=== PATIENT | male | born 1975 | race Two or more races ===

== ENCOUNTER → 2018-02-07 | Outpatient (CLI) | payer OTHER ==
--- NOTE | 2018-02-07 11:46 | P.STRESS ---
- Stress Test Note Stress Test Results/Findings: Exam Performed: stress echo exercise Exam Date: 02/07/18 Reason for Exam: Syncope Height: 5 ft 5 in Weight: 74.389 kg Protocol: Stress Echo Stage: III Duration of Exercise: 9 Resting Heart Rate: 65 Resting Blood Pressure: 118/79 Maximum Achieved Heart Rate: 166 Maximum Achieved Blood Pressure: 161/88 85% PMHR: 94 100% PMHR: 176 METS: 10.5 Technologist Comment: Stress Test Results/Findings: Baseline heart rate 83 beats a minute Baseline blood pressure 118/79 mmHg the central ECG showed normal sinus rhythm with early repolarization inferolaterally Patient exercised on a Juan protocol for 9 minutes achieving a peak heart rate of 166 beats a minute. Normal blood pressure response to exercise There is no CT evidence for ischemia no arrhythmias noted no symptoms noted There was no echocardiographic evidence for ischemia Impression Good exercise capacity no ECG or echocardiographic evidence for ischemia
== END | disposition home or self-care (01) ==
LOC: RADNMMAIN 09:37
PROVIDERS: ATTEND Family Medicine
DX: R42 Dizziness and giddiness (principal); R00.2 Palpitations
CPT/HCPCS: 93351

== ENCOUNTER 2019-10-30 17:35 | Inpatient (IN) | payer OTHER ==
[2019-10-30] MEDS ORDERED: SODIUM CHLORIDE 0.9% 500 ML 500 ML IV STA (17:56)
--- NOTE | 2019-10-30 18:13 | ED ---
General Adult HPI - General Chief complaint: Abdominal Pain Stated complaint: Kidney pain Time Seen by Provider: 10/30/19 17:43 Source: patient Mode of arrival: ambulatory Limitations: no limitations - History of Present Illness Initial comments: Dictation was produced using [employer] dictation software. please excuse any grammatical, word or spelling errors. This patient was cared for during a federal and state declared state of emergency secondary to Covid 19 Chief Complaint: 43-year-old male with past medical history of appendectomy cholecystectomy presents with abdominal pain. History of Present Illness: 43-year-old male presents to the emergency Department with intermittent abdominal pain for the last 4 weeks. Patient state s the pain is his left lower quadrant. He states is intermittent. He states that it's been coming more severe. No exacerbating or mitigating factors. Patient states that the pain radiates to his epigastric area. Does have nausea but no vomiting. Denies any diarrhea. Patient's heart he might have a kidney stone. He has no urinary symptoms. The ROS documented in this emergency department record has been reviewed and confirmed by me. Those systems with pertinent positive or negative responses have been documented in the HPI. All other systems are other negative and/or noncontributory. PHYSICAL EXAM: General Impression: Alert and oriented x3, not in acute distress HEENT: Normocephalic atraumatic, extra-ocular movements intact, pupils equal and reactive to light bilaterally, mucous membranes moist. Cardiovascular: Heart regular rate and rhythm, S1&S2 audible, no murmurs, rubs or gallops Chest: Able to complete full sentences, no retractions, no tachypnea Abdomen: Bowel sounds present, abdomen soft, mild diffuse abdominal tenderness non-distended, no organomegaly Musculoskeletal: Pulses present and equal in all extremities, no peripheral edema Motor: no focal deficits noted Neurological: CN II-XII grossly intact, no focal motor or sensory deficits noted Skin: Intact with no visualized rashes Psych: Normal affect and mood ED course: 43-year-old male presents with chief complaint of abdominal pain. Vital signs upon arrival shows heart rate of 119 cumbersome vital signs within acceptable limits. Laboratory evaluation obtained. Leukocytosis 20.2, metabolic panel is unremarkable. Urinalysis is unremarkable. CT of the abdomen and pelvis was obtained showing perforated diverticulitis with pneumoperitoneum and pericolonic fluid. Patient reevaluated bedside he is stable appearing. Patient started on Zosyn. Patient will be admitted to general surgery. EKG interpretation: Ventricular rate 106, sinus tachycardia, MA interval 154, QRS 86, QTC 435. No MA prolongation, no QTC prolongation, no ST or T-wave changes noted. . Overall, this EKG is unremarkable - Related Data Home Medications Medication Instructions Recorded Confirmed Aspirin EC [Ecotrin Low Dose] 81 mg PO DAILY 10/30/19 10/30/19 Cholecalciferol [Vitamin D3 (25 1,000 unit PO DAILY 10/30/19 10/30/19 Mcg = 1000 Iu)] Omeprazole Magnesium [PriLOSEC OTC] 40 mg PO DAILY PRN 10/30/19 10/30/19 Allergies Allergy/AdvReac Type Severity Reaction Status Date / Time No Known Allergies Allergy Verified 10/30/19 18:33 Review of Systems ROS Statement: Those systems with pertinent positive or pertinent negative responses have been documented in the HPI. ROS Other: All systems not noted in ROS Statement are negative. Past Medical History Past Medical History: No Reported History History of Any Multi-Drug Resistant Organisms: None Reported Past Surgical History: Appendectomy, Cholecystectomy Past Psychological History: No Psychological Hx Reported Smoking Status: Current every day smoker Past Alcohol Use History: Occasional Past Drug Use History: None Reported General Exam Limitations: no limitations Course Vital Signs 10/30/19 10/30/19 17:38 20:03 Temperature 99.5 F 100.2 F H Pulse Rate 119 H 102 H Respiratory 18 18 Rate Blood Pressure 143/90 142/98 O2 Sat by Pulse 97 100 Oximetry Medical Decision Making - Lab Data Result diagrams: 10/30/19 18:35 10/30/19 18:35 Lab Results 10/30/19 10/30/19 10/30/19 Range/Units 18:35 18:35 18:43 WBC 20.2 H (3.8-10.6) k/uL RBC 4.80 (4.30-5.90) m/uL Hgb 14.6 (13.0-17.5) gm/dL Hct 44.7 (39.0-53.0) % MCV 93.3 (80.0-100.0) fL MCH 30.3 (25.0-35.0) pg MCHC 32.5 (31.0-37.0) g/dL RDW 12.3 (11.5-15.5) % Plt Count 246 (150-450) k/uL Neutrophils % 87 % Lymphocytes % 7 % Monocytes % 4 % Eosinophils % 0 % Basophils % 0 % Neutrophils # 17.6 H (1.3-7.7) k/uL Lymphocytes # 1.4 (1.0-4.8) k/uL Monocytes # 0.9 (0-1.0) k/uL Eosinophils # 0.1 (0-0.7) k/uL Basophils # 0.1 (0-0.2) k/uL Sodium 136 L (137-145) mmol/L Potassium 3.7 (3.5-5.1) mmol/L Chloride 101 (98-107) mmol/L Carbon Dioxide 26 (22-30) mmol/L Anion Gap 9 mmol/L BUN 14 (9-20) mg/dL Creatinine 0.87 (0.66-1.25) mg/dL Est GFR (CKD-EPI)AfAm >90 (>60 ml/min/1.73 sqM) Est GFR (CKD-EPI)NonAf >90 (>60 ml/min/1.73 sqM) Glucose 134 H (74-99) mg/dL Calcium 9.3 (8.4-10.2) mg/dL Total Bilirubin 1.1 (0.2-1.3) mg/dL AST 18 (17-59) U/L ALT 24 (4-49) U/L Alkaline Phosphatase 61 (38-126) U/L Total Protein 7.5 (6.3-8.2) g/dL Albumin 4.3 (3.5-5.0) g/dL Lipase 43 (23-300) U/L Urine Color Yellow Urine Appearance Clear (Clear) Urine pH 5.5 (5.0-8.0) Ur Specific [place] 1.025 (1.001-1.035) Urine Protein 1+ H (Negative) Urine Glucose (UA) Negative (Negative) Urine Ketones 1+ H (Negative) Urine Blood Negative (Negative) Urine Nitrite Negative (Negative) Urine Bilirubin Negative (Negative) Urine Urobilinogen <2.0 (<2.0) mg/dL Ur Leukocyte Esterase Negative (Negative) Urine WBC 2 (0-5) /hpf Urine Mucus Many H (None) /hpf Disposition Clinical Impression: Diverticulitis Disposition: ADMITTED IP TO THIS HOSP Condition: Fair Referrals: Denis Villagomez MD [Primary Care Provider] - 1-2 days Decision Time: 20:09
[2019-10-30 18:49] LABS: Basophils # (A) 0.1 k/uL (0-0.2); Basophils % (A) 0 %; Eosinophils # (A) 0.1 k/uL (0-0.7); Eosinophils % (A) 0 %; HCT 44.7 % (39.0-53.0); HGB 14.6 gm/dL (13.0-17.5); Lymphocytes # (A) 1.4 k/uL (1.0-4.8); Lymphocytes % (A) 7 %; MCH 30.3 pg (25.0-35.0); MCHC 32.5 g/dL (31.0-37.0); MCV 93.3 fL (80.0-100.0); Mean Platelet Volume 7.7; Monocytes # (A) 0.9 k/uL (0-1.0); Monocytes % (A) 4 %; Neutrophils # (A) 17.6 k/uL (1.3-7.7); Neutrophils % (A) 87 %; Platelet Count 246 k/uL (150-450); RDW 12.3 % (11.5-15.5); WBC 20.2 k/uL (3.8-10.6)
[2019-10-30 19:03] LABS: ALT 24 U/L (4-49); AST 18 U/L (17-59); African American GFR (CKD) >90 (>60 ml/min/1.73 sqM); Albumin 4.3 g/dL (3.5-5.0); Alkaline Phosphatase 61 U/L (38-126); Anion Gap 9 mmol/L; Blood Urea Nitrogen 14 mg/dL (9-20); Calcium 9.3 mg/dL (8.4-10.2); Carbon Dioxide 26 mmol/L (22-30); Chloride 101 mmol/L (98-107); Glucose 134 mg/dL (74-99); Non-African American GFR(CKD) >90 (>60 ml/min/1.73 sqM); Potassium 3.7 mmol/L (3.5-5.1); Sodium 136 mmol/L (137-145); Total Bilirubin 1.1 mg/dL (0.2-1.3); Total Protein 7.5 g/dL (6.3-8.2)
[2019-10-30 19:06] LABS: Appearance,Urine Clear (Clear); Bilirubin,Urine Negative (Negative); Blood,Urine Negative (Negative); Color,Urine Yellow; Glucose,Urine (UA) Negative (Negative); Ketones,Urine 1+ (Negative); Leukocyte Esterase,Urine Negative (Negative); Mucus,Urine Many /hpf; Nitrite,Urine Negative (Negative); PH, Urine 5.5 (5.0-8.0); Protein,Urine 1+ (Negative); Specific Gravity,Urine 1.025 (1.001-1.035); Urobilinogen,Urine <2.0 mg/dL (<2.0); WBC,Urine 2 /hpf (0-5)
--- NOTE | 2019-10-30 20:08 | CT ---
EXAMINATION TYPE: CT abdomen pelvis w con DATE OF EXAM: 10/30/2019 COMPARISON: None HISTORY: Acute abdominal pain. Generalized pain with distention of the abdomen on and off for months with dark urine CT DLP: 939.3 mGycm Automated exposure control for dose reduction was used. TECHNIQUE: Helical acquisition of images was performed from the lung bases through the pelvis. CONTRAST: Performed without Oral Contrast and with IV Contrast, patient injected with 100 mL of Isovue 300. FINDINGS: LUNG BASES: No significant abnormality is appreciated. LIVER/GB: Liver is diffusely hypoattenuated approaching criteria for mild degree hepatic steatosis. G allbladder is surgically absent. No intrahepatic biliary ductal dilatation seen. Postsurgical dilatat ion of the extrahepatic biliary duct. PANCREAS: No significant abnormality is seen. SPLEEN: No splenomegaly. ADRENALS: No nodularity nor thickening. KIDNEYS: Kidneys enhance and excrete symmetrically without hydronephrosis. FREE AIR: No free air is visualized. ADENOPATHY: No greater than 1 cm short axis in the abdomen or pelvis. OSSEOUS STRUCTURES: No significant abnormality is seen. BOWEL: Acute diverticulitis is seen of the sigmoid colon with pericolonic fat stranding, sigmoid colo n wall thickening, numerous diverticula, and pneumoperitoneum with multiple foci of extraluminal air such as on image 62. Adjacent fascial thickening of the left hemipelvis and trace amount of free flui d in the pelvis that is likely reactive. Very small pericolonic fluid collection is seen mostly conta ining air measuring 1.8 x 1.0 cm. No proximal bowel dilatation to suggest reactive obstruction. Other scattered colonic diverticula are seen without pericolonic fat stranding. Thickening of the small bridger wel adjacent inflammatory change is likely reactive such as on image 60. No definitive fistula. Very small hiatal hernia as questioned. Descending duodenal diverticulum is noted near the pancreatic head. OTHER: Surgical clip along the right pelvic sidewall is noted. This may be dropped from the cholecyst ectomy. Urinary bladder displays circumferential wall thickening, likely either reactive or related t o incomplete distention. Urinalysis could be considered. IMPRESSION: ACUTE, COMPLICATED SIGMOID DIVERTICULITIS WITH MULTIPLE FOCI OF PNEUMOPERITONEUM AND A SMALL PERICOLO FRANCY FLUID COLLECTION (MOSTLY COMPRISED OF AIR) MEASURING 1.0 X 1.8 CM. Findings communicated to Dr. Sosa hammond by Dr. Suárez at 2005pm on 10/30/19.
[2019-10-30] MEDS ORDERED: NALOXONE 0.4 MG/ML 1 ML VIAL IV PRN (20:10)
[2019-10-30] MEDS ORDERED: ONDANSETRON 4 MG/2 ML VIAL IVP PRN (20:10)
[2019-10-30] MEDS ORDERED: ACETAMINOPHEN TAB 325 MG TAB PO PRN (20:10)
[2019-10-30] MEDS ORDERED: MORPHINE SULFATE 4 MG/ML SYRINGE IV PRN (20:10)
[2019-10-30] MEDS ORDERED: metroNIDAZOLE-NS PMX 500 MG in SALINE 1 100ML.BAG IVPB STA (20:14)
[2019-10-30] MEDS ORDERED: LEVOFLOXACIN 750MG-D5W PMX 750 MG in DEXTROSE/WATER 1 150ML.BAG IVPB STA (20:14)
[2019-10-30] MEDS: SODIUM CHLORIDE 0.9% 1,000 ML IV SCH (20:19)
[2019-10-30] MEDS: PANTOPRAZOLE 40 MG/10 ML VIAL IV SCH (20:21)
[2019-10-31] MEDS ORDERED: PIPERACILLIN-TAZOBACTAM 3.375 GM in SODIUM CHLORIDE 0.9% 100 ML IVPB SCH ×2
[2019-10-31] MEDS: SODIUM CHLORIDE 0.9% 1,000 ML IV SCH ×3 (07:14→23:59)
[2019-10-31] MEDS: PANTOPRAZOLE 40 MG/10 ML VIAL IV SCH (07:14)
--- NOTE | 2019-10-31 10:40 | P.GSHP ---
History of Present Illness H&P Date: 10/31/19 Chief Complaint: Sigmoid diverticulitis Patient presents to the hospital complaining of left lower quadrant abdominal pain and bloating. Patient has had 2 episodes similar to this over the last few months. He did have 1 episode of vomiting. Mild nausea. Some constipation. No rectal bleeding or melena. No previous colonoscopy. Patient's white blood cell count was elevated. Low-grade fevers. Went for CT abdomen and pelvis and was found to have sigmoid diverticulitis with extraluminal air around the sigmoid colon. Patient says his pain today is slightly better than yesterday. Rates his pain as a 5 out of 10. - Review of Systems Comment: The patient denies any acute changes in vision or hearing, no dysphagia or odynophagia, no chest pain or shortness of breath, no dysuria or hematuria, no headache, no runny nose, no rectal bleeding or melena, no unexplained weight loss Past Medical History Past Medical History: No Reported History History of Any Multi-Drug Resistant Organisms: None Reported Past Surgical History: Appendectomy, Cholecystectomy Past Psychological History: No Psychological Hx Reported Smoking Status: Current every day smoker Past Alcohol Use History: Occasional Past Drug Use History: None Reported - Past Family History Mother Family Medical History: Pneumonia Medications and Allergies Home Medications Medication Instructions Recorded Confirmed Type Aspirin EC [Ecotrin Low Dose] 81 mg PO DAILY 10/30/19 10/30/19 History Cholecalciferol [Vitamin D3 (25 1,000 unit PO DAILY 10/30/19 10/30/19 History Mcg = 1000 Iu)] Omeprazole Magnesium [PriLOSEC OTC] 40 mg PO DAILY PRN 10/30/19 10/30/19 History Allergies Allergy/AdvReac Type Severity Reaction Status Date / Time No Known Allergies Allergy Verified 10/30/19 18:33 Surgical - Exam Vital Signs Temp Pulse Resp BP Pulse Ox 99.5 F 119 H 18 143/90 97 10/30/19 17:38 10/30/19 17:38 10/30/19 17:38 10/30/19 17:38 10/30/19 17:38 Physical exam: General: Well-developed, well-nourished HEENT: Normocephalic, sclerae nonicteric Abdomen: Mildly distended, mild left lower quadrant tenderness without rebound or guarding Extremities: No edema Neuro: Alert and oriented Results - Labs 10/30/19 18:35 10/30/19 18:35 Abnormal Lab Results - Last 24 Hours (Table) 10/30/19 10/30/19 10/30/19 Range/Units 18:35 18:35 18:43 WBC 20.2 H (3.8-10.6) k/uL Neutrophils # 17.6 H (1.3-7.7) k/uL Sodium 136 L (137-145) mmol/L Glucose 134 H (74-99) mg/dL Urine Protein 1+ H (Negative) Urine Ketones 1+ H (Negative) Urine Mucus Many H (None) /hpf Diabetes panel 10/30/19 Range/Units 18:35 Sodium 136 L (137-145) mmol/L Potassium 3.7 (3.5-5.1) mmol/L Chloride 101 (98-107) mmol/L Carbon Dioxide 26 (22-30) mmol/L BUN 14 (9-20) mg/dL Creatinine 0.87 (0.66-1.25) mg/dL Glucose 134 H (74-99) mg/dL Calcium 9.3 (8.4-10.2) mg/dL AST 18 (17-59) U/L ALT 24 (4-49) U/L Alkaline Phosphatase 61 (38-126) U/L Total Protein 7.5 (6.3-8.2) g/dL Albumin 4.3 (3.5-5.0) g/dL Calcium panel 10/30/19 Range/Units 18:35 Calcium 9.3 (8.4-10.2) mg/dL Albumin 4.3 (3.5-5.0) g/dL Pituitary panel 10/30/19 Range/Units 18:35 Sodium 136 L (137-145) mmol/L Potassium 3.7 (3.5-5.1) mmol/L Chloride 101 (98-107) mmol/L Carbon Dioxide 26 (22-30) mmol/L BUN 14 (9-20) mg/dL Creatinine 0.87 (0.66-1.25) mg/dL Glucose 134 H (74-99) mg/dL Calcium 9.3 (8.4-10.2) mg/dL Adrenal panel 10/30/19 Range/Units 18:35 Sodium 136 L (137-145) mmol/L Potassium 3.7 (3.5-5.1) mmol/L Chloride 101 (98-107) mmol/L Carbon Dioxide 26 (22-30) mmol/L BUN 14 (9-20) mg/dL Creatinine 0.87 (0.66-1.25) mg/dL Glucose 134 H (74-99) mg/dL Calcium 9.3 (8.4-10.2) mg/dL Total Bilirubin 1.1 (0.2-1.3) mg/dL AST 18 (17-59) U/L ALT 24 (4-49) U/L Alkaline Phosphatase 61 (38-126) U/L Total Protein 7.5 (6.3-8.2) g/dL Albumin 4.3 (3.5-5.0) g/dL Assessment and Plan (1) Diverticulitis Narrative/Plan: 43-year-old male with sigmoid diverticulitis and localized perforation. Continue broad-spectrum antibiotics. Begin clear liquids. Continue analgesics. Ambulate. We'll monitor closely. Current Visit: Yes Status: Acute Code(s): K57.92 - DVTRCLI OF INTEST, PART UNSP, W/O PERF OR ABSCESS W/O BLEED SNOMED Code(s): 926444609
[2019-10-31] MEDS: KETOROLAC 30 MG/ML 1 ML VIAL IVP SCH ×3 (12:02→23:59)
[2019-10-31] MEDS: metroNIDAZOLE-NS PMX 500 MG in SALINE 1 100ML.BAG IVPB SCH (15:16)
[2019-10-31] MEDS: HEPARIN SODIUM,PORCINE 5,000 UNIT/ML 1 ML VIAL SQ SCH ×2 (16:01→23:59)
--- NOTE | 2019-10-31 18:44 | PN ---
PROGRESS NOTE CHIEF COMPLAINT: Diverticulitis. HISTORY OF PRESENT ILLNESS: This gentleman is still uncomfortable, but he is feeling better than he was. He has had no vomiting. He is still running a low-grade fever and he has yet to be seen by General Surgery. PHYSICAL EXAMINATION: Hydration is good. Color is good. Chest is clear. Cardiac exam is normal. His abdomen remains tender throughout. Bowel sounds are not heard. IMPRESSION: Diverticulitis. PLAN: Continue to follow with General Surgery. Considering his multiple recurrent episodes, he will soon become a candidate for segmental resection. MMODL / IJN: [id number] /
--- NOTE | 2019-10-31 19:59 | CONS ---
CONSULTATION CHIEF COMPLAINT: Acute onset of lower abdominal pain. HISTORY OF PRESENT ILLNESS: This is another admission for this 43-year-old white male. He has had several episodes of acute diverticulitis in the last year or so which have responded to antibiotics. He came in this time after he developed acute lower abdominal pain, and in the emergency room it was suggested on a CT that he had Pneumocystis coli and possible microperforations. His temperature was elevated as well as his white count, which was 20,000. He has a history of hypertension and COPD as well. REVIEW OF SYSTEMS: He has had no confusion, headache, chest pain, shortness of breath, melena, hematochezia, nausea, vomiting, hematemesis, dysuria, frequency, urgency, renal failure, diabetes, etc. Past medical history, family history, and personal and social histories are otherwise unremarkable or noncontributory. They can be found in his admitting summary. He is NOT ALLERGIC TO ANY MEDICATION. He uses ibuprofen 800 mg q.i.d. p.r.n. He is on vitamin D 50,000 units once a month. Surgically he has had cholecystectomy and appendectomy. He does smoke, but does not drink. PHYSICAL EXAMINATION: Blood pressure 140/86, pulse of 80, respirations 14, temperature 100. In general he appeared to be well developed, well nourished, in no acute distress. Skin color is normal. Skin is warm and dry. Lymph nodes are not enlarged. Head, ears, eyes, nose, mouth and throat are normal. Neck veins are not distended. Thyroid is not enlarged. Chest is clear. Cardiac exam is normal. The abdomen is flat. He had generalized abdominal tenderness. Bowel sounds are not heard. Extremities are normal. Neurologically he is intact. IMPRESSION: 1. Acute diverticulitis with possible perforation. 2. History of hypertension. 3. Tobacco use. RECOMMENDATIONS: None at this time. Medically he seems to be stable. Thank you. MMODL / IJN: [id number] /
[2019-10-31] MEDS: LEVOFLOXACIN 500MG-D5W PMX 500 MG in DEXTROSE/WATER 1 100ML.BAG IVPB SCH (20:33)
[2019-11-01] MEDS: SODIUM CHLORIDE 0.9% 1,000 ML IV SCH ×3 (05:51→23:34)
[2019-11-01] MEDS: KETOROLAC 30 MG/ML 1 ML VIAL IVP SCH ×3 (05:59→18:19)
[2019-11-01 06:31] LABS: Basophils % (A) 0 %; Eosinophils # (A) 0.2 k/uL (0-0.7); Eosinophils % (A) 2 %; HCT 35.5 % (39.0-53.0); HGB 11.9 gm/dL (13.0-17.5); Lymphocytes # (A) 1.6 k/uL (1.0-4.8); Lymphocytes % (A) 15 %; MCH 31.4 pg (25.0-35.0); MCHC 33.4 g/dL (31.0-37.0); MCV 93.9 fL (80.0-100.0); Mean Platelet Volume 7.8; Monocytes # (A) 0.6 k/uL (0-1.0); Monocytes % (A) 5 %; Neutrophils # (A) 8.3 k/uL (1.3-7.7); Neutrophils % (A) 76 %; Platelet Count 230 k/uL (150-450); RBC 3.78 m/uL (4.30-5.90); RDW 12.2 % (11.5-15.5)
[2019-11-01 06:41] LABS: African American GFR (CKD) >90 (>60 ml/min/1.73 sqM); Anion Gap 7 mmol/L; Blood Urea Nitrogen 11 mg/dL (9-20); Calcium 8.2 mg/dL (8.4-10.2); Carbon Dioxide 22 mmol/L (22-30); Chloride 107 mmol/L (98-107); Glucose 124 mg/dL (74-99); Non-African American GFR(CKD) >90 (>60 ml/min/1.73 sqM); Potassium 4.1 mmol/L (3.5-5.1); Sodium 136 mmol/L (137-145)
[2019-11-01] MEDS: HEPARIN SODIUM,PORCINE 5,000 UNIT/ML 1 ML VIAL SQ SCH ×3 (09:03→23:37)
[2019-11-01] MEDS: PANTOPRAZOLE 40 MG/10 ML VIAL IV SCH (09:03)
[2019-11-01] MEDS: metroNIDAZOLE-NS PMX 500 MG in SALINE 1 100ML.BAG IVPB SCH ×4 (09:03→23:37)
--- NOTE | 2019-11-01 10:21 | P.PN ---
Subjective Progress Note Date: 11/01/19 Principal diagnosis: Diverticulitis Patient says his pain is down to around 3. White blood cell count 11. He is afebrile. Tolerating clear liquids. No bowel movement. Objective - Vital Signs Vital signs: Vital Signs Temp 98.3 F 11/01/19 04:53 Pulse 73 11/01/19 04:53 Resp 16 11/01/19 04:53 BP 105/72 11/01/19 04:53 Pulse Ox 97 11/01/19 04:53 Intake & Output 10/31/19 11/01/19 11/01/19 18:59 06:59 18:59 Intake Total 1840 1280 Balance 1840 1280 Intake: Intake, IV Titration 1400 1280 Amount Levofloxacin 500Mg-D5w 100 100 Pmx 500 mg In Dextrose/ Water 1 100ml.bag @ 100 mls/hr IVPB HS HARINDER Rx#: [id number] Sodium Chloride 0.9% 1, 1200 1080 000 ml @ 120 mls/hr IV . [id number] [facility]INDER Rx#:[id number] metroNIDAZOLE-NS PMX 500 100 100 mg In Saline 1 100ml.bag @ 100 mls/hr IVPB Q8HR [facility]INDER Rx#:[id number] Oral 440 Other: Voiding Method Toilet Toilet # Voids 10 1 - Exam Abdomen: Soft, nondistended, mild tenderness, no rebound or guarding - Labs CBC & Chem 7: 11/01/19 06:02 11/01/19 06:02 Labs: Abnormal Lab Results - Last 24 Hours (Table) 11/01/19 11/01/19 Range/Units 06:02 06:02 WBC 11.0 H (3.8-10.6) k/uL RBC 3.78 L (4.30-5.90) m/uL Hgb 11.9 L (13.0-17.5) gm/dL Hct 35.5 L (39.0-53.0) % Neutrophils # 8.3 H (1.3-7.7) k/uL Sodium 136 L (137-145) mmol/L Glucose 124 H (74-99) mg/dL Calcium 8.2 L (8.4-10.2) mg/dL Assessment and Plan (1) Diverticulitis Narrative/Plan: Continue antibiotics. Recheck CBC tomorrow. Advance diet to full liquids. Ambulate. Current Visit: Yes Status: Acute Code(s): K57.92 - DVTRCLI OF INTEST, PART UNSP, W/O PERF OR ABSCESS W/O BLEED SNOMED Code(s): 771362666
--- NOTE | 2019-11-01 14:14 | PN ---
PROGRESS NOTE CHIEF COMPLAINT: Diverticulitis with microperforation. HISTORY OF PRESENT ILLNESS: This gentleman is doing fairly well. His temperature has been down. He is being followed by Surgery. He has been started on clear liquids. PHYSICAL EXAMINATION: Chest is clear. Cardiac exam is normal. The bowel sounds are absent. IMPRESSION: Diverticulitis with perforation. PLAN: Continue to follow with Surgery. He seems to be doing well conservatively. MMODL / IJN: [id number] /
[2019-11-01] MEDS: LEVOFLOXACIN 500MG-D5W PMX 500 MG in DEXTROSE/WATER 1 100ML.BAG IVPB SCH (20:22)
[2019-11-02] MEDS: KETOROLAC 30 MG/ML 1 ML VIAL IVP SCH ×2 (01:43→05:15)
[2019-11-02 01:47] VITALS: PULSE 79; RESP 18
[2019-11-02 05:32] VITALS: BP 117/78; TEMP 98.2
[2019-11-02 06:03] LABS: Basophils # (A) 0.1 k/uL (0-0.2); Basophils % (A) 1 %; Eosinophils # (A) 0.3 k/uL (0-0.7); Eosinophils % (A) 3 %; HCT 35.7 % (39.0-53.0); HGB 11.6 gm/dL (13.0-17.5); Lymphocytes % (A) 25 %; MCH 30.9 pg (25.0-35.0); MCHC 32.5 g/dL (31.0-37.0); Mean Platelet Volume 7.7; Monocytes # (A) 0.6 k/uL (0-1.0); Monocytes % (A) 7 %; Neutrophils # (A) 4.9 k/uL (1.3-7.7); Neutrophils % (A) 61 %; Platelet Count 234 k/uL (150-450); RBC 3.76 m/uL (4.30-5.90); RDW 12.5 % (11.5-15.5); WBC 8.1 k/uL (3.8-10.6)
[2019-11-02] MEDS: SODIUM CHLORIDE 0.9% 1,000 ML IV SCH (08:14)
[2019-11-02] MEDS: metroNIDAZOLE-NS PMX 500 MG in SALINE 1 100ML.BAG IVPB SCH (08:15)
[2019-11-02] MEDS: HEPARIN SODIUM,PORCINE 5,000 UNIT/ML 1 ML VIAL SQ SCH (08:15)
[2019-11-02] MEDS: PANTOPRAZOLE 40 MG/10 ML VIAL IV SCH (08:15)
--- NOTE | 2019-11-02 11:16 | P.DS ---
Providers Date of admission: 10/30/19 20:11 Expected date of discharge: 11/02/19 Attending physician: Braeden Hoang Primary care physician: Denis Villagomez - Discharge Diagnosis(es) (1) Diverticulitis Patient doing well today. Pain is mostly resolved at this point. He is passing stool. White blood cell count normal. He is afebrile. Patient was admitted with acute diverticulitis with pericolonic air. Patient was treated nonoperatively with a broad-spectrum antibiotics. Has done well. Would like to go home. We'll prescribe antibiotics postdischarge orally. Patient will have a telehealth visit with me in 1 week. Patient and I discussed elective sigmoid resection given the recurrent nature of this diverticulitis. Current Visit: Yes Status: Acute Patient Condition at Discharge: Fair Plan - Discharge Summary New Discharge Prescriptions: No Action Omeprazole Magnesium [PriLOSEC OTC] 40 mg PO DAILY PRN PRN Reason: gerds Cholecalciferol [Vitamin D3 (25 Mcg = 1000 Iu)] 1,000 unit PO DAILY Aspirin EC [Ecotrin Low Dose] 81 mg PO DAILY Discharge Medication List Aspirin EC [Ecotrin Low Dose] 81 mg PO DAILY 10/30/19 [History] Cholecalciferol [Vitamin D3 (25 Mcg = 1000 Iu)] 1,000 unit PO DAILY 10/30/19 [History] Omeprazole Magnesium [PriLOSEC OTC] 40 mg PO DAILY PRN 10/30/19 [History] Follow up Appointment(s)/Referral(s): Denis Villagomez MD [Primary Care Provider] - 1-2 days Patient Instructions/Handouts: Diverticulitis (DC)
--- NOTE | 2019-11-04 15:20 | PN ---
PROGRESS NOTE DATE OF SERVICE: 11/02/2019. CHIEF COMPLAINT: Diverticulitis. HISTORY OF PRESENT ILLNESS: This gentleman is doing much better and he is starting to advance diet. He will probably go home today. PHYSICAL EXAMINATION: Chest is clear. The cardiac exam is normal. The abdomen is soft, nontender. IMPRESSION: Diverticulitis with micro perforation. PLAN: Increase activity and diet and possibly home today or tomorrow. MMODL / IJN: [id number] /
== END 2019-11-02 12:16 | disposition home or self-care (01) | DRG 392 ==
LOC: EC 17:35 → 5NMEDONC 20:11
PROVIDERS: ADMIT Surgery; ATTEND Surgery
DX: K57.20 Diverticulitis of large intestine with perforation and abscess without bleeding (principal); F17.200 Nicotine dependence, unspecified, uncomplicated; I10 Essential (primary) hypertension; J44.9 Chronic obstructive pulmonary disease, unspecified; Z90.49 Acquired absence of other specified parts of digestive tract; Z83.6 Family history of other diseases of the respiratory system; Z79.82 Long term (current) use of aspirin
CPT/HCPCS: 36415; 74177; 80048; 80053; 81001; 83690; 85025; 93005; 96361; 96374; 99285

== ENCOUNTER 2019-12-07 11:36 | Emergency (ER) | payer OTHER ==
[2019-12-07 11:43] VITALS: TEMP 99
[2019-12-07] MEDS ORDERED: SODIUM CHLORIDE 0.9% 1,000 ML IV STA (11:53)
--- NOTE | 2019-12-07 12:01 | ED ---
Abdominal Pain HPI - General Chief Complaint: Abdominal Pain Stated Complaint: diverticulitis Time Seen by Provider: 12/07/19 11:48 Source: patient, RN notes reviewed Mode of arrival: ambulatory Limitations: no limitations - History of Present Illness Initial Comments: This a 43-year-old male presents emergency Department chief complaint of lower abdominal pain. Patient has a history of diverticulitis with perforation at the beginning of October. Patient states the pain is uncomfortable at this time. He states that he's been trying to put it off but felt that he should come in as he was told to present if he had symptoms again. Patient saw Dr. franklin and his PCP on last admission. Patient did not have any surgical procedures. Patient denies any known fever or chills normal bowel movements denies any current nausea vomiting normal appetite. Patient states his urine has been darker than usual. - Related Data Home Medications Medication Instructions Recorded Confirmed Aspirin EC [Ecotrin Low Dose] 81 mg PO DAILY 10/30/19 10/30/19 Cholecalciferol [Vitamin D3 (25 1,000 unit PO DAILY 10/30/19 10/30/19 Mcg = 1000 Iu)] Omeprazole Magnesium [PriLOSEC OTC] 40 mg PO DAILY PRN 10/30/19 10/30/19 Previous Rx's Medication Instructions Recorded Levofloxacin [Levaquin] 500 mg PO DAILY 10 Days #3 tab 11/02/19 metroNIDAZOLE [Flagyl] 500 mg PO TID #30 tab 11/02/19 Amoxicillin/Potassium Clav 1 tab PO Q12HR #14 tab 12/07/19 [Augmentin 875-125 Tablet] Allergies Allergy/AdvReac Type Severity Reaction Status Date / Time No Known Allergies Allergy Verified 12/07/19 11:43 Review of Systems ROS Statement: Those systems with pertinent positive or pertinent negative responses have been documented in the HPI. ROS Other: All systems not noted in ROS Statement are negative. Past Medical History Past Medical History: No Reported History Additional Past Medical History / Comment(s): Diverticulitis History of Any Multi-Drug Resistant Organisms: None Reported Past Surgical History: Appendectomy, Cholecystectomy Past Psychological History: No Psychological Hx Reported Smoking Status: Current every day smoker Past Alcohol Use History: Occasional Past Drug Use History: None Reported - Past Family History Mother Family Medical History: Pneumonia General Exam Limitations: no limitations General appearance: alert, in no apparent distress Head exam: Present: atraumatic, normocephalic, normal inspection Eye exam: Present: normal appearance, PERRL, EOMI. Absent: scleral icterus, conjunctival injection, periorbital swelling ENT exam: Present: normal exam, normal oropharynx, mucous membranes moist Neck exam: Present: normal inspection, full ROM. Absent: tenderness, meningismus, lymphadenopathy Respiratory exam: Present: normal lung sounds bilaterally. Absent: respiratory distress, wheezes, rales, rhonchi, stridor Cardiovascular Exam: Present: normal rhythm, tachycardia, normal heart sounds. Absent: systolic murmur, diastolic murmur, rubs, gallop, clicks GI/Abdominal exam: Present: soft, tenderness (Mild lower abdominal tenderness), normal bowel sounds. Absent: distended, guarding, rebound, rigid Back exam: Absent: CVA tenderness (R), CVA tenderness (L) Neurological exam: Present: alert, oriented X3 Skin exam: Present: warm, dry, intact, normal color. Absent: rash Course Vital Signs 12/07/19 12/07/19 12/07/19 11:39 12:29 12:55 Temperature 99.0 F Pulse Rate 137 H 88 88 Respiratory 18 17 Rate Blood Pressure 124/74 131/88 O2 Sat by Pulse 98 98 Oximetry Medical Decision Making - Medical Decision Making 43-year-old male presented for abdominal pain history of diverticulitis. There is resolution of his prior abscess. Do question that he has some early diverticulitis changes. Patient was started on Augmentin. Patient will follow- up with Dr. johansen for any worsening symptoms. - Lab Data Result diagrams: 12/07/19 12:09 12/07/19 12:09 Lab Results 12/07/19 12/07/19 12/07/19 Range/Units 12:09 12:09 12:09 WBC 7.3 (3.8-10.6) k/uL RBC 4.77 (4.30-5.90) m/uL Hgb 14.9 D (13.0-17.5) gm/dL Hct 45.3 (39.0-53.0) % MCV 94.9 (80.0-100.0) fL MCH 31.1 (25.0-35.0) pg MCHC 32.8 (31.0-37.0) g/dL RDW 12.8 (11.5-15.5) % Plt Count 259 (150-450) k/uL Neutrophils % 64 % Lymphocytes % 24 % Monocytes % 7 % Eosinophils % 2 % Basophils % 1 % Neutrophils # 4.7 (1.3-7.7) k/uL Lymphocytes # 1.7 (1.0-4.8) k/uL Monocytes # 0.5 (0-1.0) k/uL Eosinophils # 0.1 (0-0.7) k/uL Basophils # 0.1 (0-0.2) k/uL Sodium 137 (137-145) mmol/L Potassium 4.8 (3.5-5.1) mmol/L Chloride 105 (98-107) mmol/L Carbon Dioxide 24 (22-30) mmol/L Anion Gap 8 mmol/L BUN 11 (9-20) mg/dL Creatinine 0.90 (0.66-1.25) mg/dL Est GFR (CKD-EPI)AfAm >90 (>60 ml/min/1.73 sqM) Est GFR (CKD-EPI)NonAf >90 (>60 ml/min/1.73 sqM) Glucose 136 H (74-99) mg/dL Plasma Lactic Acid Duncan (0.7-2.0) mmol/L Calcium 9.1 (8.4-10.2) mg/dL Total Bilirubin 0.7 (0.2-1.3) mg/dL AST 40 (17-59) U/L ALT 35 (4-49) U/L Alkaline Phosphatase 44 (38-126) U/L Total Protein 7.2 (6.3-8.2) g/dL Albumin 4.1 (3.5-5.0) g/dL Amylase 39 (30-110) U/L Lipase 79 (23-300) U/L Urine Color Yellow Urine Appearance Clear (Clear) Urine pH 6.0 (5.0-8.0) Ur Specific Melville 1.010 (1.001-1.035) Urine Protein Negative (Negative) Urine Glucose (UA) Negative (Negative) Urine Ketones Negative (Negative) Urine Blood Negative (Negative) Urine Nitrite Negative (Negative) Urine Bilirubin Negative (Negative) Urine Urobilinogen <2.0 (<2.0) mg/dL Ur Leukocyte Esterase Negative (Negative) 12/07/19 Range/Units 12:09 WBC (3.8-10.6) k/uL RBC (4.30-5.90) m/uL Hgb (13.0-17.5) gm/dL Hct (39.0-53.0) % MCV (80.0-100.0) fL MCH (25.0-35.0) pg MCHC (31.0-37.0) g/dL RDW (11.5-15.5) % Plt Count (150-450) k/uL Neutrophils % % Lymphocytes % % Monocytes % % Eosinophils % % Basophils % % Neutrophils # (1.3-7.7) k/uL Lymphocytes # (1.0-4.8) k/uL Monocytes # (0-1.0) k/uL Eosinophils # (0-0.7) k/uL Basophils # (0-0.2) k/uL Sodium (137-145) mmol/L Potassium (3.5-5.1) mmol/L Chloride (98-107) mmol/L Carbon Dioxide (22-30) mmol/L Anion Gap mmol/L BUN (9-20) mg/dL Creatinine (0.66-1.25) mg/dL Est GFR (CKD-EPI)AfAm (>60 ml/min/1.73 sqM) Est GFR (CKD-EPI)NonAf (>60 ml/min/1.73 sqM) Glucose (74-99) mg/dL Plasma Lactic Acid Duncan 1.2 (0.7-2.0) mmol/L Calcium (8.4-10.2) mg/dL Total Bilirubin (0.2-1.3) mg/dL AST (17-59) U/L ALT (4-49) U/L Alkaline Phosphatase (38-126) U/L Total Protein (6.3-8.2) g/dL Albumin (3.5-5.0) g/dL Amylase (30-110) U/L Lipase (23-300) U/L Urine Color Urine Appearance (Clear) Urine pH (5.0-8.0) Ur Specific Mel[place] (1.001-1.035) Urine Protein (Negative) Urine Glucose (UA) (Negative) Urine Ketones (Negative) Urine Blood (Negative) Urine Nitrite (Negative) Urine Bilirubin (Negative) Urine Urobilinogen (<2.0) mg/dL Ur Leukocyte Esterase (Negative) Disposition Clinical Impression: Diverticulitis Disposition: HOME SELF-CARE Condition: Stable Instructions (If sedation given, give patient instructions): Diverticulitis Diet (ED), Diverticulitis (ED) Additional Instructions: Please return to the Emergency Department if symptoms worsen or any other co ncerns. Prescriptions: Amoxicillin/Potassium Clav [Augmentin 875-125 Tablet] 1 tab PO Q12HR #14 tab Is patient prescribed a controlled substance at d/c from ED?: No Referrals: Denis Villagomez MD [Primary Care Provider] - 1-2 days Time of Disposition: 13:23
[2019-12-07 12:30] VITALS: PULSE 88
[2019-12-07 12:38] LABS: ALT 35 U/L (4-49); AST 40 U/L (17-59); African American GFR (CKD) >90 (>60 ml/min/1.73 sqM); Albumin 4.1 g/dL (3.5-5.0); Alkaline Phosphatase 44 U/L (38-126); Amylase 39 U/L (30-110); Anion Gap 8 mmol/L; Blood Urea Nitrogen 11 mg/dL (9-20); Calcium 9.1 mg/dL (8.4-10.2); Carbon Dioxide 24 mmol/L (22-30); Chloride 105 mmol/L (98-107); Glucose 136 mg/dL (74-99); Non-African American GFR(CKD) >90 (>60 ml/min/1.73 sqM); Potassium 4.8 mmol/L (3.5-5.1); Sodium 137 mmol/L (137-145); Total Bilirubin 0.7 mg/dL (0.2-1.3); Total Protein 7.2 g/dL (6.3-8.2)
[2019-12-07 12:41] LABS: Basophils # (A) 0.1 k/uL (0-0.2); Basophils % (A) 1 %; Eosinophils # (A) 0.1 k/uL (0-0.7); Eosinophils % (A) 2 %; HCT 45.3 % (39.0-53.0); Lymphocytes # (A) 1.7 k/uL (1.0-4.8); Lymphocytes % (A) 24 %; MCH 31.1 pg (25.0-35.0); MCHC 32.8 g/dL (31.0-37.0); MCV 94.9 fL (80.0-100.0); Mean Platelet Volume 7.7; Monocytes # (A) 0.5 k/uL (0-1.0); Monocytes % (A) 7 %; Neutrophils # (A) 4.7 k/uL (1.3-7.7); Neutrophils % (A) 64 %; Platelet Count 259 k/uL (150-450); RBC 4.77 m/uL (4.30-5.90); RDW 12.8 % (11.5-15.5); WBC 7.3 k/uL (3.8-10.6)
[2019-12-07 12:43] LABS: HGB 14.9 gm/dL (13.0-17.5)
[2019-12-07 12:50] LABS: Appearance,Urine Clear (Clear); Bilirubin,Urine Negative (Negative); Blood,Urine Negative (Negative); Color,Urine Yellow; Glucose,Urine (UA) Negative (Negative); Ketones,Urine Negative (Negative); Leukocyte Esterase,Urine Negative (Negative); Nitrite,Urine Negative (Negative); Protein,Urine Negative (Negative); Urobilinogen,Urine <2.0 mg/dL (<2.0)
--- NOTE | 2019-12-07 13:08 | CT ---
EXAMINATION TYPE: CT abdomen pelvis w con DATE OF EXAM: 12/07/2019 REFERENCE: Previous study dated 10/30/2019. HISTORY: Abdominal pain, recent perforation, diverticulitis HISTORY: Abdominal pain, recent perforation, diverticulitis CT DLP: 994.5 mGy Automated exposure control for dose reduction was used. TECHNIQUE: Helical acquisition through the abdomen and pelvis was obtained following the oral ingesti on of without Oral Contrast and following intravenous administration of 100 ml mL of Isovue 300. The data was reformatted in axial, coronal and sagittal projections. FINDINGS: Visualized portions of the lungs are clear. There is no pleural or pericardial fluid. The heart is not enlarged. Within the abdomen, the gallbladder is been removed. The liver and spleen are normal. Both adrenal glands are normal. Both kidneys demonstrate function and appear morphologically normal. The pancreas is unremarkable. There is no significant retroperitoneal, iliac or inguinal adenopathy. The bladder is not distended. Inflammatory change in the pelvis has resolved. There is now uncomplicated diverticular disease withi n the sigmoid colon with scattered diverticula elsewhere along the left side of the colon. The append ix is not imaged with certainty. Small bowel loops are normal in caliber. There is no free fluid and no free air identified. No osseous lesion is seen. IMPRESSION: 1. RESOLUTION OF THE PATIENT'S INFLAMMATORY CHANGE ADJACENT TO THE SIGMOID COLON. 2. UNCOMPLICATED DIVERTICULOSIS OF THE LEFT SIDE OF THE COLON.
[2019-12-07 13:28] VITALS: BP 120/84; RESP 18
== END 2019-12-07 13:24 | disposition home or self-care (01) ==
LOC: EC 11:36
DX: K57.30 Diverticulosis of large intestine without perforation or abscess without bleeding (principal); F17.200 Nicotine dependence, unspecified, uncomplicated; Z79.82 Long term (current) use of aspirin
CPT/HCPCS: 36415; 80053; 82150; 83605; 83690; 85025; 81003; 87040; 74177; 99284; 96360; Q9967

== ENCOUNTER 2021-12-19 16:48 | Emergency (ER) | payer OTHER ==
--- NOTE | 2021-12-19 22:33 | ED ---
Recheck HPI - General Chief Complaint: Abdominal Pain Stated Complaint: diverticulitis Time Seen by Provider: 12/19/21 21:57 Source: patient, RN notes reviewed, old records reviewed Mode of arrival: ambulatory Limitations: no limitations - History of Present Illness Initial Comments: This is a 46-year-old male DF for evaluation recurrent diverticulitis. Patient presented today for evaluation of left lower quadrant abdominal pain. Has prior diagnosis of diverticulitis 2 states usually does going on antibiotic is all entirely needs. MD Complaint: medication refill request -: unknown Returns Today for: request for prescription Symptoms Since Prior Visit: no new symptoms Context: ran out of medication Associated Symptoms: none Treatments Prior to Arrival: other medications - Related Data Home Medications Medication Instructions Recorded Confirmed Aspirin EC [Ecotrin Low Dose] 81 mg PO DAILY 10/30/19 10/30/19 Cholecalciferol [Vitamin D3 (25 1,000 unit PO DAILY 10/30/19 10/30/19 Mcg = 1000 Iu)] Omeprazole Magnesium [PriLOSEC OTC] 40 mg PO DAILY PRN 10/30/19 10/30/19 Previous Rx's Medication Instructions Recorded Levofloxacin [Levaquin] 500 mg PO DAILY 10 Days #3 tab 11/02/19 metroNIDAZOLE [Flagyl] 500 mg PO TID #30 tab 11/02/19 Amoxicillin/Potassium Clav 1 tab PO Q12HR #14 tab 12/07/19 [Augmentin 875-125 Tablet] Amoxic-Pot Clav 875-125Mg 1 tab PO Q12HR #40 tablet 12/19/21 [Augmentin 875-125] Allergies Allergy/AdvReac Type Severity Reaction Status Date / Time No Known Allergies Allergy Verified 12/19/21 19:45 Review of Systems ROS Statement: Those systems with pertinent positive or pertinent negative responses have been documented in the HPI. ROS Other: All systems not noted in ROS Statement are negative. Past Medical History Past Medical History: No Reported History Additional Past Medical History / Comment(s): Diverticulitis History of Any Multi-Drug Resistant Organisms: None Reported Past Surgical History: Appendectomy, Cholecystectomy Past Psychological History: No Psychological Hx Reported Smoking Status: Current every day smoker Past Alcohol Use History: Occasional Past Drug Use History: None Reported - Past Family History Mother Family Medical History: Pneumonia General Exam Limitations: no limitations General appearance: alert, in no apparent distress Head exam: Present: atraumatic, normocephalic, normal inspection Eye exam: Present: normal appearance, PERRL, EOMI. Absent: scleral icterus, conjunctival injection, periorbital swelling ENT exam: Present: normal exam, mucous membranes moist Neck exam: Present: normal inspection. Absent: tenderness, meningismus, lymphadenopathy Respiratory exam: Present: normal lung sounds bilaterally. Absent: respiratory distress, wheezes, rales, rhonchi, stridor Cardiovascular Exam: Present: regular rate, normal rhythm, normal heart sounds. Absent: systolic murmur, diastolic murmur, rubs, gallop, clicks GI/Abdominal exam: Present: soft, normal bowel sounds. Absent: distended, tenderness, guarding, rebound, rigid Extremities exam: Present: normal inspection, full ROM, normal capillary refill. Absent: tenderness, pedal edema, joint swelling, calf tenderness Back exam: Present: normal inspection Neurological exam: Present: alert, oriented X3, CN II-XII intact Psychiatric exam: Present: normal affect, normal mood Skin exam: Present: warm, dry, intact, normal color. Absent: rash Course Vital Signs 12/19/21 19:41 Temperature 98.5 F Pulse Rate 83 Respiratory 22 Rate Blood Pressure 153/97 O2 Sat by Pulse 98 Oximetry - Reevaluation(s) Reevaluation #1: 12/19/21 22:32 Medical record is reviewed Reevaluation #2: 12/19/21 22:32 Patient has medication refill requested Medical Decision Making - Medical Decision Making 46 male medication refill request and given. Patient requesting on Vioxx for diverticulitis. At this time patient can be discharged home Disposition Clinical Impression: Diverticulitis, Medication refill Disposition: HOME SELF-CARE Condition: Good Instructions (If sedation given, give patient instructions): Medicine Refill (ED) Prescriptions: Amoxic-Pot Clav 875-125Mg [Augmentin 875-125] 1 tab PO Q12HR #40 tablet Is patient prescribed a controlled substance at d/c from ED?: No Referrals: Denis Villagomez MD [Primary Care Provider] - 1-2 days
[2021-12-19 22:49] VITALS: BP 128/105; PULSE 78; RESP 18; TEMP 98.3
== END 2021-12-19 22:51 | disposition home or self-care (01) ==
LOC: EC 16:48
DX: K57.92 Diverticulitis of intestine, part unspecified, without perforation or abscess without bleeding (principal); Z76.0 Encounter for issue of repeat prescription; F17.200 Nicotine dependence, unspecified, uncomplicated; Z79.82 Long term (current) use of aspirin
CPT/HCPCS: 99283